=== PATIENT | male | born 1980 | race Hispanic/Latino ===

== ENCOUNTER → 2025-02-10 | Outpatient (CLI) | payer OTHER ==
--- NOTE | 2025-02-11 09:25 | HMCIMG ---
EXAM: CT Cardiac calcium scoring. CLINICAL HISTORY: CAD screening. TECHNIQUE: Thin collimated axial CT cardiac images were obtained. A CT scan is done according to ALARA (As Low As Reasonably Achievable). CONTRAST: None. COMPARISON: None provided. FINDINGS: Calcium Score: VESSEL Number of lesions Volume mm3 Equi. Mass/mg Calcium score LM 0 00.00 00.00 00.00 LAD 7 34.2 --.-- 46.7 LCX 9 13.3 --.-- 17.5 RCA 12 31.6 --.-- 35.07 Total 28 79.1 --.-- 99.9 IMPRESSION: The calcium score is 99.9. This places the patient into 90th percentile in comparison to a group of patients asymptomatic for coronary artery disease with the same age and gender. This means that 90% of males aged 45-49 have a calcium score that is lower than the patient's. /[place]
== END | disposition home or self-care (01) ==
LOC: RAH 12:55
PROVIDERS: ATTEND Internal Medicine Cardiovascular Disease
DX: Z13.6 Encounter for screening for cardiovascular disorders (principal); I25.10 Atherosclerotic heart disease of native coronary artery without angina pectoris
CPT/HCPCS: 75571